=== PATIENT | female | born 1950 | race Caucasian/White ===

== ENCOUNTER 2017-03-03 11:16 | Emergency (ER) | payer OTHER ==
[~2017-03-03] VITALS: Ht 160 cm; Wt 68.0 kg
[2017-03-03 11:23] VITALS: BP 145/78; PULSE 79; RESP 16; TEMP 97.9; O2SAT 100
[2017-03-03] MEDS ORDERED: TRAM50TA PO (11:34)
[2017-03-03] MEDS ORDERED: muscle relaxer (11:34)
[2017-03-03] MEDS ORDERED: MULTTAB67 PO (11:34)
[2017-03-03] MEDS ORDERED: ONDANSETRON HCL 4 MG/2 ML VIAL IVP ONE (11:45)
[2017-03-03] MEDS ORDERED: FAMOTIDINE 20 MG/2 ML VIAL IV PUSH ONE (11:45)
[2017-03-03] MEDS ORDERED: SODIUM CHLOR 0.9% 1000 ML INJ 1,000 ML IV ONE (11:45)
[2017-03-03] MEDS ORDERED: SODIUM CHLOR 0.9% 1000 ML INJ 1,000 ML IV SCH (11:45)
[2017-03-03] MEDS ORDERED: SODIUM CHLORIDE 0.9% FLUSH 10 ML FLUSH IV FLUSH PRN (11:45)
[2017-03-03] MEDS ORDERED: MORPHINE SULFATE 4 MG/ML INJ IV PUSH ONE (11:45)
--- NOTE | 2017-03-03 11:52 | PD ---
HPI Chief Complaint: GI Complaint Time Seen by Provider: 11:38 Travel History International Travel<30 days: No Contact w/Intl Traveler<30days: No Traveled to known affect area: No History of Present Illness HPI Patient is a 67-year-old female with history of diverticulosis who presents to emergency room with complaints of lower abdominal pain with nausea, vomiting and diarrhea. Patient reports that she has had lower abdominal discomfort for the past week. Reports that since last night, she has been experiencing increased nausea, vomiting and diarrhea. Patient reports that symptoms feel similar to when she was diagnosed with acute diverticulitis in the past. Patient reports that she last had a colonoscopy 8 years ago which showed diverticulosis. Patient with no recent travels or trips, patient with no sick contacts. Patient denies any fevers or chills, reports that she has not been on any antibiotics recently. Patient with no complaints at this time PFSH Past Medical History Medical History: Denies Significant Hx Diminished Hearing: No Musculoskeletal: Yes (neck problems) Influenza Vaccination: No ?: Not Past Surgical History Gynecologic Surgery: Yes (endometrosis) Social History Alcohol Use: Yes (liquor daily) Tobacco Use: No Allergies-Medications (Allergen,Severity, Reaction): Coded Allergies: No Known Allergies (Unverified , 03/03/17) Reported Meds & Prescriptions Reported Meds & Active Scripts Active Flagyl (Metronidazole) 500 Mg Tab 500 Mg PO QID 10 Days Cipro (Ciprofloxacin HCl) 500 Mg Tab 500 Mg PO BID 10 Days Reported Multiple Vitamin 1 Tab 1 Tab PO DAILY [muscle relaxer] 0 Tramadol (Tramadol HCl) 50 Mg Tab 50 Mg PO Q4H PRN Review of Systems General / Constitutional: No: Fever Eyes: No: Visual changes HENT: No: Headaches Cardiovascular: No: Chest Pain or Discomfort Respiratory: No: Shortness of Breath Gastrointestinal: Positive: Nausea, Vomiting, Diarrhea, Abdominal Pain Genitourinary: No: Dysuria Musculoskeletal: No: Pain Skin: No Rash Neurologic: No: Weakness Psychiatric: No: Depression Endocrine: No: Polydipsia Hematologic/Lymphatic: No: Easy Bruising Physical Exam Narrative GENERAL: Mild distress SKIN: Focused skin assessment warm/dry. HEAD: Atraumatic. Normocephalic. EYES: Pupils equal and round. No scleral icterus. No injection or drainage. ENT: No nasal bleeding or discharge. Mucous membranes pink and moist. NECK: Trachea midline. No JVD. CARDIOVASCULAR: Regular rate and rhythm. No murmur appreciated. RESPIRATORY: No accessory muscle use. Clear to auscultation. Breath sounds equal bilaterally. GASTROINTESTINAL: Abdomen soft, increased tenderness to lower abdomen with no rebound or guarding on exam, nondistended. Hepatic and splenic margins not palpable. MUSCULOSKELETAL: No obvious deformities. No clubbing. No cyanosis. No edema. NEUROLOGICAL: Awake and alert. No obvious cranial nerve deficits. Motor grossly within normal limits. Normal speech. PSYCHIATRIC: Appropriate mood and affect; insight and judgment normal. Data Data Last Documented VS Vital Signs Date Time Temp Pulse Resp B/P (MAP) Pulse Ox O2 Delivery O2 Flow Rate FiO2 03/03/17 13:09 65 18 163/83 (109) 99 Room Air 03/03/17 11:23 97.9 Orders Orders Complete Blood Count With Diff (03/03/17 11:45) Comprehensive Metabolic Panel (03/03/17 11:45) Lipase (03/03/17 11:45) Prothrombin Time / Inr (Pt) (03/03/17 11:45) Act Partial Throm Time (Ptt) (03/03/17 11:45) Urinalysis - C+S If Indicated (03/03/17 11:45) Ct Abd/Pel W Iv Contrast(Rout) (03/03/17 11:45) Iv Access Insert/Monitor (03/03/17 11:45) NPO (03/03/17 11:45) Morphine Inj (Morphine Inj) (03/03/17 11:45) Ondansetron Inj (Zofran Inj) (03/03/17 11:45) Sodium Chlor 0.9% 1000 Ml Inj (Ns 1000 M (03/03/17 11:45) Sodium Chloride 0.9% Flush (Ns Flush) (03/03/17 11:45) Famotidine Inj (Pepcid Inj) (03/03/17 11:45) Sodium Chlor 0.9% 1000 Ml Inj (Ns 1000 M (03/03/17 11:45) Iohexol 350 Inj (Omnipaque 350 Inj) (03/03/17 12:54) Morphine Inj (Morphine Inj) (03/03/17 13:30) Ciprofloxacin 400 Mg Premix (Cipro 400 M (03/03/17 13:30) Metronidazole 500 Mg Inj (Flagyl 500 Mg (03/03/17 13:30) Ciprofloxacin (Cipro) (03/03/17 13:30) Metronidazole (Flagyl) (03/03/17 13:30) Labs Laboratory Tests Test 03/03/17 11:40 03/03/17 13:10 White Blood Count 9.0 TH/MM3 Red Blood Count 4.48 MIL/MM3 Hemoglobin 13.7 GM/DL Hematocrit 40.5 % Mean Corpuscular Volume 90.4 FL Mean Corpuscular Hemoglobin 30.5 PG Mean Corpuscular Hemoglobin Concent 33.7 % Red Cell Distribution Width 11.9 % Platelet Count 313 TH/MM3 Mean Platelet Volume 8.7 FL Neutrophils (%) (Auto) 69.1 % Lymphocytes (%) (Auto) 24.4 % Monocytes (%) (Auto) 4.9 % Eosinophils (%) (Auto) 0.3 % Basophils (%) (Auto) 1.3 % Neutrophils # (Auto) 6.3 TH/MM3 Lymphocytes # (Auto) 2.2 TH/MM3 Monocytes # (Auto) 0.4 TH/MM3 Eosinophils # (Auto) 0.0 TH/MM3 Basophils # (Auto) 0.1 TH/MM3 CBC Comment AUTO DIFF Differential Comment AUTO DIFF CONFIRMED Prothrombin Time 11.3 SEC Prothromb Time International Ratio 1.0 RATIO Activated Partial Thromboplast Time 27.0 SEC Blood Urea Nitrogen 11 MG/DL Creatinine 0.52 MG/DL Random Glucose 97 MG/DL Total Protein 7.2 GM/DL Albumin 3.5 GM/DL Calcium Level 9.4 MG/DL Alkaline Phosphatase 52 U/L Aspartate Amino Transf (AST/SGOT) 19 U/L Alanine Aminotransferase (ALT/SGPT) 31 U/L Total Bilirubin 0.4 MG/DL Sodium Level 137 MEQ/L Potassium Level 3.6 MEQ/L Chloride Level 104 MEQ/L Carbon Dioxide Level 25.0 MEQ/L Anion Gap 8 MEQ/L Estimat Glomerular Filtration Rate 118 ML/MIN Lipase 153 U/L MDM Medical Decision Making Medical Screen Exam Complete: Yes Emergency Medical Condition: Yes Medical Record Reviewed: Yes Interpretation(s) Vital Signs Date Time Temp Pulse Resp B/P (MAP) Pulse Ox O2 Delivery O2 Flow Rate FiO2 03/03/17 11:23 97.9 79 16 145/78 (100) 100 Differential Diagnosis Differential includes diverticulitis, gastritis, gastroenteritis, uti, electrolyte abnormality Narrative Course Patient is a 67 year old female who presents to ER with complaints of lower abdominal with nausea and vomiting and diarrhea. Patient with history of diverticulosis and diverticulitis. CBC, CMP, UA ordered as well as ct of abdomen and pelvis. IVF ordered as well as antiemetics and morphine for pain. Plan to hydrate and observe patient. Vital Signs Date Time Temp Pulse Resp B/P (MAP) Pulse Ox O2 Delivery O2 Flow Rate FiO2 03/03/17 13:09 65 18 163/83 (109) 99 Room Air 03/03/17 12:35 18 03/03/17 11:23 97.9 79 16 145/78 (100) 100 Laboratory Tests Test 03/03/17 11:40 White Blood Count 9.0 TH/MM3 (4.0-11.0) Red Blood Count 4.48 MIL/MM3 (4.00-5.30) Hemoglobin 13.7 GM/DL (11.6-15.3) Hematocrit 40.5 % (35.0-46.0) Mean Corpuscular Volume 90.4 FL (80.0-100.0) Mean Corpuscular Hemoglobin 30.5 PG (27.0-34.0) Mean Corpuscular Hemoglobin Concent 33.7 % (32.0-36.0) Red Cell Distribution Width 11.9 % (11.6-17.2) Platelet Count 313 TH/MM3 (150-450) Mean Platelet Volume 8.7 FL (7.0-11.0) Neutrophils (%) (Auto) 69.1 % (16.0-70.0) Lymphocytes (%) (Auto) 24.4 % (9.0-44.0) Monocytes (%) (Auto) 4.9 % (0.0-8.0) Eosinophils (%) (Auto) 0.3 % (0.0-4.0) Basophils (%) (Auto) 1.3 % (0.0-2.0) Neutrophils # (Auto) 6.3 TH/MM3 (1.8-7.7) Lymphocytes # (Auto) 2.2 TH/MM3 (1.0-4.8) Monocytes # (Auto) 0.4 TH/MM3 (0-0.9) Eosinophils # (Auto) 0.0 TH/MM3 (0-0.4) Basophils # (Auto) 0.1 TH/MM3 (0-0.2) CBC Comment AUTO DIFF Differential Comment AUTO DIFF CONFIRMED Prothrombin Time 11.3 SEC (9.8-11.6) Prothromb Time International Ratio 1.0 RATIO Activated Partial Thromboplast Time 27.0 SEC (24.3-30.1) Blood Urea Nitrogen 11 MG/DL (7-18) Creatinine 0.52 MG/DL (0.50-1.00) Random Glucose 97 MG/DL (74-106) Total Protein 7.2 GM/DL (6.4-8.2) Albumin 3.5 GM/DL (3.4-5.0) Calcium Level 9.4 MG/DL (8.5-10.1) Alkaline Phosphatase 52 U/L (45-117) Aspartate Amino Transf (AST/SGOT) 19 U/L (15-37) Alanine Aminotransferase (ALT/SGPT) 31 U/L (10-53) Total Bilirubin 0.4 MG/DL (0.2-1.0) Sodium Level 137 MEQ/L (136-145) Potassium Level 3.6 MEQ/L (3.5-5.1) Chloride Level 104 MEQ/L (98-107) Carbon Dioxide Level 25.0 MEQ/L (21.0-32.0) Anion Gap 8 MEQ/L (5-15) Estimat Glomerular Filtration Rate 118 ML/MIN (>89) Lipase 153 U/L (73-393) cbc: wnl bmp: wnl lfts: wnl coags: wnl Ct of abdomen and pelvis: Bowel wall thickening involving most of the descending colon extending into the sigmoid. There is also pericolonic inflammatory changes beginning the proximal descending and extending into the junction of the descending and sigmoid portions of the colon. There are scattered diverticula in the colon most severe in the descending and sigmoid colon. There is a fibroid as well as bilateral pars fractures Patient with uncomplicated diverticulitis, plan to treat with Cipro and Flagyl, will have him return to ER as needed. 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 Signs and symptoms of when to return to the emergency room was reviewed with patient in detail. A copy of pt's ct report was given to her at discharge - incidental findings were reviewed. Patient appreciative of care Diagnosis Primary Impression: Diverticulitis Qualified Codes: K57.32 - Diverticulitis of large intestine without perforation or abscess without bleeding Patient Instructions: General Instructions, Narcotic given in the ED Additional Instructions: Please provide patient with a copy of her studies at discharge Please take all medications as prescribed Follow-up with your primary care doctor in 2-3 days Please follow-up with the stripping and booking machine operator Drink plenty of fluids Med/Other Pt SpecificInfo: Prescription(s) given Scripts Metronidazole (Flagyl) 500 Mg Tab 500 MG PO QID for Infection for 10 Days, TAB 0 Refills Prov: Vivian Camejo DO 03/03/17 Ciprofloxacin (Cipro) 500 Mg Tab 500 MG PO BID for Infection for 10 Days, #20 TAB 0 Refills Prov: Vivian Camejo DO 03/03/17 Disposition: 01 DISCHARGE HOME Condition: Stable Vivian Camejo DO Mar 03, 2017 11:52
[2017-03-03 12:07] LABS: AUTOMATED NEUTROPHIL # 6.3 TH/MM3 (1.8-7.7); BASOPHIL # 0.1 TH/MM3 (0-0.2); BASOPHIL % 1.3 % (0.0-2.0); EOSINOPHIL % 0.3 % (0.0-4.0); HEMATOCRIT 40.5 % (35.0-46.0); LYMPH % 24.4 % (9.0-44.0); LYMPHOCYTE # 2.2 TH/MM3 (1.0-4.8); MEAN CELL VOLUME 90.4 FL (80.0-100.0); MEAN CORPUSCULAR HEMOGLOBIN 30.5 PG (27.0-34.0); MEAN CORPUSCULAR HGB CONC 33.7 % (32.0-36.0); MONO % 4.9 % (0.0-8.0); NEUT % 69.1 % (16.0-70.0); PLATELET COUNT 313 TH/MM3 (150-450); RED BLOOD COUNT 4.48 MIL/MM3 (4.00-5.30); RED CELL DISTRIBUTION WIDTH 11.9 % (11.6-17.2)
[2017-03-03 12:10] LABS: HEMO FLAGS AUTO DIFF
[2017-03-03 12:25] LABS: CHLORIDE 104 MEQ/L (98-107); POTASSIUM 3.6 MEQ/L (3.5-5.1); SODIUM (NA) 137 MEQ/L (136-145)
[2017-03-03 12:29] LABS: ANION GAP 8 MEQ/L (5-15)
[2017-03-03 12:30] LABS: BLOOD UREA NITROGEN 11 MG/DL (7-18); PROTHROMBIN TIME - PATIENT 11.3 SEC (9.8-11.6)
[2017-03-03 12:32] LABS: ALT (GPT) 31 U/L (10-53); AST (GOT) 19 U/L (15-37)
[2017-03-03 12:33] LABS: GLOMERULAR FILTRATION RATE 118 ML/MIN (>89)
[2017-03-03 12:34] LABS: TOTAL BILIRUBIN ADULT 0.4 MG/DL (0.2-1.0)
[2017-03-03 12:35] LABS: ALKALINE PHOSPHATASE 52 U/L (45-117)
[2017-03-03 12:36] LABS: SCAN/DIFF AUTO DIFF CONFIRMED
[2017-03-03] MEDS ORDERED: IOHEXOL 350 MG/ML 10 ML VIAL (for RAD DIAG) IVCONTRAST ONE (12:54)
[2017-03-03 13:09] VITALS: BP 163/83; PULSE 65; RESP 18; O2SAT 99
--- NOTE | 2017-03-03 13:12 | RADRPT ---
EXAM DATE/TIME: 03/03/2017 12:45 [facility] COMPARISON: No previous studies available for comparison. INDICATIONS : Umbilical pain for one week. IV CONTRAST: 95 cc Omnipaque 350 (iohexol) IV ORAL CONTRAST: No oral contrast ingested. RADIATION DOSE: 18.44 CTDIvol (mGy) MEDICAL HISTORY : Diverticulitis. SURGICAL HISTORY : None. ENCOUNTER: Initial ACUITY: 1 week PAIN SCALE: 4/10 LOCATION: abdomen TECHNIQUE: Volumetric scanning of the abdomen and pelvis was performed. Using automated exposure control and ad justment of the mA and/or kV according to patient size, radiation dose was kept as low as reasonably achievable to obtain optimal diagnostic quality images. DICOM format image data is available electro nically for review and comparison. FINDINGS: LOWER LUNGS: The visualized lower lungs are clear. LIVER: Homogeneous density without lesion. There is no dilation of the biliary tree. No calcified gallston es. SPLEEN: Normal size without lesion. PANCREAS: Within normal limits. KIDNEYS: Normal in size and shape. There is no mass, stone or hydronephrosis. ADRENAL GLANDS: Within normal limits. VASCULAR: There is no aortic aneurysm. BOWEL/MESENTERY: Bowel wall thickening involving most of the descending colon extending into the sigmoid. There is als o pericolonic inflammatory changes beginning in the proximal descending and extending into the juncti on of the descending and sigmoid portions of colon. Scattered diverticula in the colon, most severe i n the descending and sigmoid. ABDOMINAL WALL: Within normal limits. RETROPERITONEUM: There is no lymphadenopathy. BLADDER: No wall thickening or mass. REPRODUCTIVE: Nodular densities in the uterus, with a pedunculated 2.7 cm lesion left posterolateral characteristic of fibroids. Small amount of free fluid in the deep right pelvis. INGUINAL: There is no lymphadenopathy or hernia. MUSCULOSKELETAL: Partial sacralization of the left side of L5. There appear to be bilateral pars fractures at this lev el as well. CONCLUSION: 1. Patient's symptoms appear to be due to a colitis involving the descending and sigmoid portions of the colon. With the significant regional diverticular disease, findings are most characteristic of a uncomplicated diverticulitis. 2. Small amount of free fluid in the deep right pelvis probably represents some weeping from the infl [place] bowel. 3. Uterine fibroids. 4. Partial sacralization of the left side of L5 with probable bilateral pars fractures at the same le seth. Reymundo Aragon MD on March 03, 2017 at 13:05 Board Certified Radiologist. This report was verified electronically.
[2017-03-03] MEDS ORDERED: METR-1 PO (13:21)
[2017-03-03] MEDS ORDERED: CIPR-9 PO (13:21)
[2017-03-03] MEDS ORDERED: metroNIDAZOLE 500 MG TAB PO ONE (13:30)
[2017-03-03] MEDS ORDERED: MORPHINE SULFATE 8 MG/ML INJ IV PUSH ONE (13:30)
[2017-03-03] MEDS ORDERED: CIPROFLOXACIN 400 MG PREMIX 200 ML IV ONE (13:30)
[2017-03-03] MEDS ORDERED: CIPROFLOXACIN 500 MG TAB PO ONE (13:30)
[2017-03-03] MEDS ORDERED: metroNIDAZOLE 500 MG INJ 100 ML IV ONE (13:30)
[2017-03-03 13:32] LABS: BLOOD, URINE TRACE (NEG); GLUCOSE,URINE NEG (NEG); KETONE, URINE TRACE mg/dL (NEG); NITRITE,URINE NEG (NEG)
[2017-03-03 13:41] LABS: CULTURE IF INDICATED CULT NOT INDICATED; METHOD OF COLLECTION CLEAN CATCH; RBC, URINE 0-3 /hpf (0-3); SQUAMOUS EPITHELIAL CELL URINE 0-5 /hpf (0-5); URINE COLOR STRAW (YELLW/STRAW)
[2017-03-03 13:42] LABS: COMMENT (UR) CULT NOT INDICATED
[2017-03-03 13:51] VITALS: RESP 18
== END 2017-03-03 14:08 | disposition home or self-care (01) ==
LOC: PHED 11:16
DX: K57.32 Diverticulitis of large intestine without perforation or abscess without bleeding (principal)
CPT/HCPCS: 74177; 80053; 81001; 83690; 85025; 85610; 85730; 96361; 96374; 96375; 96376; 99285; J2270; J2405; J7030; Q9967

== ENCOUNTER 2018-01-18 10:55 | Observation (INO) ==
[2018-01-18 10:59] VITALS: TEMP 98.3
[2018-01-18] MEDS ORDERED: Aspirin 325 MG Tablet PO ONE (11:15)
--- NOTE | 2018-01-18 11:20 | ED ---
HPI General Chief Complaint: Chest Pain Stated Complaint: CP x 3 wks Time Seen by Provider: 01/18/18 11:15 Source: patient Mode of arrival: ambulatory Limitations: no limitations History of Present Illness HPI narrative: 68-year-old female patient presents to the ER today because she has had 3 weeks of intermittent dull 5 out of 10 chest pains without obvious alleviating or exacerbating factors. She has not noticed any nausea, vomiting, coughing, fevers, or other symptoms. She has never had chest pains like this before. Complete Quality Measures for STEMI Alert Patients Related Data Home Medications Medication Instructions Recorded Confirmed alprazolam 5 mg PO PRN PRN 01/18/18 01/18/18 ibuprofen 800 mg PO QDRHS 01/18/18 01/18/18 phentermine 01/18/18 trazodone 5 mg PO HS 01/18/18 01/18/18 Allergies Allergy/AdvReac Type Severity Reaction Status Date / Time No Known Allergies Allergy Unverified 01/18/18 11:55 Review of Systems ROS: all other systems reviewed are negative [facility] Medical History Medical History Anxiety (Acute) Chronic neck pain (Acute) Depression (Acute) Diverticulitis (Acute) Fibromyalgia (Acute) Vertigo (Acute) Social History Social History Substance History: No History of Abuse Second Hand Smoke Exposure: No Smoking Status: Never smoker How Often Do You Have a Drink Containing Alcohol: 4 or more times a week Recent Travel in [facility] within the Last 8 Weeks: No Recent Out of Country Travel within the Last 8 Weeks: No Immunization History Tetanus Immunization: >5 Years Hx Influenza Vaccine This Season: No Exam Narrative Exam Narrative: GENERAL: Well-developed elderly female patient currently in mild distress. Awake and oriented 3. SKIN: Focused skin assessment warm/dry. HEAD: Atraumatic. Normocephalic. EYES: Pupils equal and round. No scleral icterus. No injection or drainage. ENT: No nasal bleeding or discharge. Mucous membranes pink and moist. NECK: Trachea midline. No JVD. Supple. CARDIOVASCULAR: Regular rate and rhythm. No murmur appreciated. RESPIRATORY: No accessory muscle use. Clear to auscultation. Breath sounds equal bilaterally. GASTROINTESTINAL: Abdomen soft, non-tender, nondistended. Hepatic and splenic margins not palpable. MUSCULOSKELETAL: No obvious deformities. No clubbing. No cyanosis. No edema. NEUROLOGICAL: Awake and alert. No obvious cranial nerve deficits. Motor grossly within normal limits. Normal speech. PSYCHIATRIC: Appropriate mood and affect; insight and judgment normal. Course Initial Documented Vital Signs Temperature 98.3 F 01/18/18 10:56 Pulse Rate 102 H 01/18/18 10:56 Blood Pressure 133/83 01/18/18 10:56 Pulse Oximetry 98 01/18/18 10:56 Last Documented Vital Signs Temperature 98.3 F 01/18/18 10:56 Pulse Rate 82 01/18/18 11:15 Respiratory Rate 16 01/18/18 11:15 Blood Pressure 173/95 H 01/18/18 11:15 Pulse Oximetry 97 01/18/18 11:32 Medical Decision Making MDM Narrative Medical decision making narrative: EKG, workup was fairly unremarkable. Cardiac enzymes negative. Patient was given aspirin in the ER. At this point, considering her symptoms and risk factors, plan would be to admit her to chest pain center for further evaluation. Case was discussed with Dr. Braun for admission. Differential Diagnosis Differential Diagnosis: ACS versus anxiety versus dysrhythmias versus pneumonia Lab Data Result diagrams: 01/18/18 11:25 01/18/18 11:25 Lab Results 01/18/18 01/18/18 01/18/18 Range/Units 11:25 11:25 11:25 CBC w Diff Auto diff final WBC 4.2 (4.0-11.0) th/mm3 RBC 4.42 (4.00-5.30) mil/mm3 Hgb 14.0 (11.6-15.3) gm/dL Hct 41.4 (35.0-46.0) % MCV 93.7 (80.0-100.0) fL MCH 31.6 (27.0-34.0) pg MCHC 33.8 (32.0-36.0) % RDW 12.4 (11.6-17.2) % Plt Count 287 (150-450) th/mm3 MPV 8.3 (7.0-11.0) fL WBC Differential . Differential Comment . PT 10.7 (9.8-11.6) sec INR 1.1 Ratio APTT 25.8 (24.3-30.1) sec Sodium (136-145) meq/L Potassium (3.5-5.1) meq/L Chloride (98-107) meq/L Carbon Dioxide (21.0-32.0) meq/L Anion Gap (5-15) meq/L BUN (7-18) mg/dL Creatinine (0.50-1.00) mg/dL Estimated GFR (>89) mL/min Random Glucose (74-106) mg/dL Calcium (8.5-10.1) mg/dL Total Bilirubin (0.2-1.0) mg/dL AST (15-37) U/L ALT (10-53) U/L Alkaline Phosphatase (45-117) U/L Troponin I Less than 0.02 L (0.02-0.05) ng/mL Total Protein (6.4-8.2) g/dL Albumin (3.4-5.0) g/dL 01/18/18 Range/Units 11:25 CBC w Diff WBC (4.0-11.0) th/mm3 RBC (4.00-5.30) mil/mm3 Hgb (11.6-15.3) gm/dL Hct (35.0-46.0) % MCV (80.0-100.0) fL MCH (27.0-34.0) pg MCHC (32.0-36.0) % RDW (11.6-17.2) % Plt Count (150-450) th/mm3 MPV (7.0-11.0) fL WBC Differential Differential Comment PT (9.8-11.6) sec INR Ratio APTT (24.3-30.1) sec Sodium 139 (136-145) meq/L Potassium 3.9 (3.5-5.1) meq/L Chloride 104 (98-107) meq/L Carbon Dioxide 26.5 (21.0-32.0) meq/L Anion Gap 9 (5-15) meq/L BUN 13 (7-18) mg/dL Creatinine 0.55 (0.50-1.00) mg/dL Estimated GFR Greater than 89 (>89) mL/min Random Glucose 109 H (74-106) mg/dL Calcium 9.3 (8.5-10.1) mg/dL Total Bilirubin 0.4 (0.2-1.0) mg/dL AST 14 L (15-37) U/L ALT 25 (10-53) U/L Alkaline Phosphatase 51 (45-117) U/L Troponin I (0.02-0.05) ng/mL Total Protein 8.0 (6.4-8.2) g/dL Albumin 4.1 (3.4-5.0) g/dL Imaging Data Radiologist's impression: Chest X-Ray 01/18/18 11:15 CONCLUSION: No acute cardiopulmonary disease Discharge Plan Discharge Details Anticipated Discharge Date: 01/18/18 Physicians Team ED Provider: Foster De Primary Care Provider: Yamila Tucker Rxs /Orders / Referrals /Forms Prescriptions: No Action alprazolam 5 mg PO PRN PRN (Reason: Anxiety) RF: 0 ibuprofen 800 mg PO QDRHS RF: 0 phentermine RF: 0 trazodone 5 mg PO HS RF: 0 Status ED Status: With Doctor
[2018-01-18 11:32] LABS: Hematocrit 41.4 % (35.0-46.0); Mean Corpuscular HGB Conc 33.8 % (32.0-36.0); Mean Corpuscular Hemoglobin 31.6 pg (27.0-34.0); Mean Corpuscular Volume 93.7 fL (80.0-100.0); Mean Platelet Volume 8.3 fL (7.0-11.0); Platelet Count 287 th/mm3 (150-450); Red Blood Count 4.42 mil/mm3 (4.00-5.30); Red Cell Distribution Width 12.4 % (11.6-17.2); White Blood Count 4.2 th/mm3 (4.0-11.0)
[2018-01-18 11:38] VITALS: RESP 16
[2018-01-18 11:46] LABS: Activated Partial Thrombo Time 25.8 sec (24.3-30.1); INR 1.1 Ratio; Prothrombin Time 10.7 sec (9.8-11.6)
--- NOTE | 2018-01-18 11:49 | XR ---
EXAM DATE: 01/18/2018 11:34 AM EDT AGE/SEX: 68 years / Female INDICATIONS: Off and on chest pain for 3 weeks CLINICAL DATA: This is the patient's initial encounter. Patient reports that signs and symptoms have been present for 3 weeks and indicates a pain score of 10/10. MEDICAL/SURGICAL HISTORY: None. None. COMPARISON: No prior exams available for comparison. FINDINGS: A single AP view of the chest demonstrates the lungs to be symmetrically aerated without evidence of mass, infiltrate or effusion. The cardiomediastinal contours are unremarkable. Osseous structures a re intact. CONCLUSION: No acute cardiopulmonary disease Electronically signed by: Christopher Hollis MD 01/18/2018 11:48 AM EDT
[2018-01-18 11:51] LABS: Chloride 104 meq/L (98-107); Potassium 3.9 meq/L (3.5-5.1); Sodium 139 meq/L (136-145)
[2018-01-18 11:55] LABS: Albumin 4.1 g/dL (3.4-5.0); Anion Gap 9 meq/L (5-15); Blood Urea Nitrogen 13 mg/dL (7-18); Calcium 9.3 mg/dL (8.5-10.1); Carbon Dioxide 26.5 meq/L (21.0-32.0); Glucose,Random 109 mg/dL (74-106)
[2018-01-18 11:58] LABS: Alanine Aminotransferase 25 U/L (10-53); Aspartate Aminotransferase 14 U/L (15-37); Glomerular Filtration Rate Greater Than 89 mL/min (>89)
[2018-01-18 12:01] LABS: Alkaline Phosphatase 51 U/L (45-117)
[2018-01-18] MEDS ORDERED: Acetaminophen 500 MG Tablet PO PRN (12:23)
[2018-01-18] MEDS ORDERED: Morphine Inj 4 MG/ML Vial IV.PUSH PRN (12:23)
[2018-01-18 13:36] VITALS: BP 136/75
--- NOTE | 2018-01-18 14:09 | P.HP ---
History of Present Illness Primary Care Physician: Yamila Tucker DO Chief Complaint: Chest pain History of Present Illness: 68-year-old female with no history of any cardiovascular disease who presented to the emergency department because of chest pain. Patient states that she has been experiencing chest discomfort for over 3 weeks now where it has been intermittent located in the left side of her chest without any radiation to the neck, back, shoulder, arm. Denied any nausea, vomiting, shortness of breath, dyspnea, diaphoresis. Patient states that she got another episode last night at roughly 9 PM that lasted for approximately 3 hours that was more severe than the previous episodes. She was thinking about calling 911 at that time. However the pain went away so she went to bed. She states that she has not notified her primary medical doctor of her recurrent chest discomfort over the last 3 weeks. She has never had a cardiac workup. Because the pain was so severe last night she decided to come to the emergency department this morning. Patient had workup done emergency department. Her workup was unremarkable. ER physician recommended patient be observed in the chest pain center. Patient is very active, she does exercise on a daily basis with walking, swimming. She denies any cardiac symptoms during exertion. - Diagnosis (1) Chest pain Review of Systems All other systems reviewed negative except as stated in HPI Cardiovascular: Reports chest pain PMFSH - History History Provided By: Patient - Medical History Medical History: Medical History (Last Reviewed 01/18/18 @ 14:06 by DAVID Evans) Anxiety Chronic neck pain Depression Diverticulitis Fibromyalgia Vertigo - Surgical History Surgical History: Surgical History (Last Updated 01/18/18 @ 13:42 by DAVID Evans) History of exploratory laparotomy - Family History Family History: Family History (Last Updated 01/18/18 @ 13:43 by DAVID Evans) Father No problems noted. Brother History of heart disease History of coronary artery disease Mother History of heart disease - Tobacco History Second Hand Smoke Exposure: No Smoking Status: Never smoker - Alcohol History How Often Do You Have a Drink Containing Alcohol: 4 or more times a week - Substance Use History Substance History: No History of Abuse - Travel History Recent Travel in the [place] Within the Last 8 Weeks: No Recent Travel Out of the Country Within the Last 8 Weeks: No - Immunization History Tetanus Immunization: >5 Years Hx Influenza Vaccine This Season: No Medications and Allergies Active Medications: Active Medications Acetaminophen (Tylenol) 500 mg PO Q4H PRN PRN Reason: HEADACHE Hydrocodone Bitart/Acetaminophen ([place] 7.5/325) 1 tab PO Q4H PRN PRN Reason: PAIN SCALE 1 TO 7 Aspirin (Aspirin) 325 mg PO DAILY FELICIA Morphine Sulfate (Morphine Inj) 2 mg IV.PUSH Q4H PRN PRN Reason: PAIN SCALE 8 TO 10 Nitroglycerin (Nitrostat Sl) 0.4 mg SL Q5M PRN PRN Reason: CHEST PAIN Ondansetron HCl (Zofran Inj) 4 mg IV.PUSH Q6H PRN PRN Reason: NAUSEA Sodium Chloride (Ns Flush) 2 ml IV.FLUSH BID FELICIA Sodium Chloride (Ns Flush) 2 ml IV.FLUSH PRN PRN PRN Reason: FLUSH AFTER USING IV ACCESS Temazepam (Restoril) 15 mg PO HS PRN PRN Reason: INSOMNIA Allergies Allergy/AdvReac Type Severity Reaction Status Date / Time No Known Allergies Allergy Unverified 01/18/18 11:55 Home Medications Medication Instructions Recorded Confirmed Type alprazolam 5 mg PO PRN PRN 01/18/18 01/18/18 History ibuprofen 800 mg PO QDRHS 01/18/18 01/18/18 History phentermine 01/18/18 History trazodone 5 mg PO HS 01/18/18 01/18/18 History Exam Vital signs: Vital Signs 01/18/18 10:56 01/18/18 11:00 01/18/18 11:15 Temperature 98.3 F Pulse Rate 102 H 76 82 Respiratory Rate 16 Blood Pressure 133/83 173/95 H Pulse Oximetry 98 99 01/18/18 11:32 01/18/18 12:00 01/18/18 13:00 Temperature Pulse Rate 76 71 Respiratory Rate 16 16 Blood Pressure 124/76 136/75 Pulse Oximetry 97 97 100 Intake & Output 01/17/18 01/18/18 01/18/18 18:59 06:59 18:59 Weight 68 kg Narrative: GENERAL: Well-developed, well-nourished, in no acute distress. alert and orientated HEENT: Head is normocephalic without any lesions or masses noted. Facial features are symmetric. Eyes: Pupils equal round reactive to light. Extraocular muscles are intact. Conjunctivae were clear. Oropharyngeal: Pharynx without any erythema edema. Tongue is midline without deviation. Buccal mucosa is moist without any masses or lesions NECK: Supple without any masses. Trachea midline no deviation. No JVD, no bruits are appreciated CARDIAC: Regular rhythm, regular rate. S1/S2 are heard. No murmurs gallops or rubs. Patient does have palpable chest wall tenderness, mainly over the manubrium LUNGS: Clear to auscultation bilaterally. No wheeze, rhonchi or rales. No use of accessory muscles on inspiration or expiration. ABDOMEN: Soft, nontender. Nondistended. Bowel sounds heard in all 4 quadrants. No organomegaly or masses. Negative rebound, negative guarding EXTREMITIES: No edema, pulses are equal bilaterally. No cyanosis or clubbing NEUROLOGY: Mood and affect appear appropriate. Cranial nerves II through XII grossly intact. Muscle strength 5/5 in upper and lower extremities bilaterally. Deep tendon reflexes are 2+ in upper and lower extremities bilaterally. Results - Labs CBC & Chem 7: 01/18/18 11:25 01/18/18 11:25 Labs: Laboratory Results - last 24 hr 01/18/18 01/18/18 01/18/18 11:25 11:25 11:25 CBC w Diff Auto diff final WBC 4.2 RBC 4.42 Hgb 14.0 Hct 41.4 MCV 93.7 MCH 31.6 MCHC 33.8 RDW 12.4 Plt Count 287 MPV 8.3 WBC Differential . Differential Comment . PT 10.7 INR 1.1 APTT 25.8 Sodium Potassium Chloride Carbon Dioxide Anion Gap BUN Creatinine Estimated GFR Random Glucose Calcium Total Bilirubin AST ALT Alkaline Phosphatase Troponin I Less than 0.02 L Total Protein Albumin 01/18/18 11:25 CBC w Diff WBC RBC Hgb Hct MCV MCH MCHC RDW Plt Count MPV WBC Differential Differential Comment PT INR APTT Sodium 139 Potassium 3.9 Chloride 104 Carbon Dioxide 26.5 Anion Gap 9 BUN 13 Creatinine 0.55 Estimated GFR Greater than 89 Random Glucose 109 H Calcium 9.3 Total Bilirubin 0.4 AST 14 L ALT 25 Alkaline Phosphatase 51 Troponin I Total Protein 8.0 Albumin 4.1 - Imaging Impressions Chest X-Ray 01/18/18 11:15 CONCLUSION: No acute cardiopulmonary disease Caprini VTE Risk Assessment Caprini VTE Risk Assessment: Moderate/High Risk (score >= 2) Caprini Risk Assessment Model: Point Value = 1 Point Value = 2 Point Value = 3 Point Value = 5 Age 41-60 Minor surgery BMI > 25 kg/m2 Swollen legs Varicose veins or History of unexplained or recurrent spontaneous Oral contraceptives or hormone replacement Sepsis (< 1 month) Serious lung disease, including pneumonia (< 1 month) Abnormal pulmonary function Acute myocardial infarction Congestive heart failure (< 1 month) History of inflammatory bowel disease Medical patient at bed rest Age 61-74 Arthroscopic surgery Major open surgery (> 45 min) Laparoscopic surgery (> 45 min) Malignancy Confined to bed (> 72 hours) Immobilizing plaster cast Central venous access Age >= 75 History of VTE Family history of VTE Factor V Leiden Prothrombin [id number] Lupus anticoagulant Anticardiolipin antibodies Elevated serum homocysteine Heparin-induced thrombocytopenia Other congenital or acquired thrombophilia Stroke (< 1 month) Elective arthroplasty Hip, pelvis, or leg fracture Acute spinal cord injury (< 1 month) Prophylaxis Regimen: Total Risk Factor Score Risk Level Prophylaxis Regimen 0-1 Low Early ambulation 2 Moderate Order ONE of the following: *Sequential Compression Device (SCD) *Heparin 5000 units SQ BID 3-4 Higher Order ONE of the following medications: *Heparin 5000 units SQ TID *Enoxaparin/Lovenox 40 mg SQ daily (WT < 150 kg, CrCl > 30 mL/min) *Enoxaparin/Lovenox 30 mg SQ daily (WT < 150 kg, CrCl > 10-29 mL/min) *Enoxaparin/Lovenox 30 mg SQ BID (WT < 150 kg, CrCl > 30 mL/min) AND/OR *Sequential Compression Device (SCD) 5 or more Highest Order ONE of the following medications: *Heparin 5000 units SQ TID (Preferred with Epidurals) *Enoxaparin/Lovenox 40 mg SQ daily (WT < 150 kg, CrCl > 30 mL/min) *Enoxaparin/Lovenox 30 mg SQ daily (WT < 150 kg, CrCl > 10-29 mL/min) *Enoxaparin/Lovenox 30 mg SQ BID (WT < 150 kg, CrCl > 30 mL/min) AND *Sequential Compression Device (SCD) Assessment and Plan - Assessment (1) Chest pain Code(s): R07.9 - Chest pain, unspecified Status: Acute - Plan Chest pain, atypical -Patient risk factors for coronary disease would be age, family history of heart disease -Patient has been ruled out for acute coronary event with serial cardiac enzymes are negative -Serial EKGs were performed and reviewed by myself which indicated sinus rhythm without any acute changes -Exercise stress test was performed which did not indicate any ischemia -Continue aspirin, nitroglycerin as needed for chest pain Anxiety, depression, fibromyalgia -Continue home medications DVT prevention -Sequential compression devices Discussed Condition With: Patient, at bedside, nursing staff Discharge Planning: Discharge home in stable condition Activity: Ad lucretia. Diet: Regular diet Medication per medication reconciliation Follow-up with primary medical doctor in 1 week
[2018-01-18 15:41] VITALS: PULSE 63
[2018-01-18 15:43] LABS: Creatine Kinase 86 U/L (26-192)
[2018-01-18 16:24] VITALS: O2SAT 99
[2018-01-18] MEDS ORDERED: Temazepam 15 MG Capsule PO PRN (21:00)
--- NOTE | 2018-01-19 08:34 | ECG ---
Date Performed: 01/18/2018 Time Performed: 15:08:59 PTAGE: 68 years EKG: Sinus rhythm POSSIBLE LEFT ATRIAL ENLARGEMENT BORDERLINE ECG PREVIOUS TRACING : 02/25/2005 11.09 DOCTOR: Matthias Dougherty Interpretating Date/Time 01/19/2018 08:28:44
[2018-01-19] MEDS ORDERED: Aspirin 325 MG Tablet PO SCH (09:00)
--- NOTE | 2018-01-19 13:18 | TR ---
Date Performed: 01/18/2018 Time Performed: 16:29:59 DOCTOR: Michael Ayala DRUG LIST: CLINICAL HISTORY: REASON FOR TEST: REASON FOR ENDING: Completed Protocol OBSERVATION: Chest Pain: None CONCLUSION: Patient tolerated KALYAN protocol with Total Exercise Time=6:01 Max Predicted SY=237 % Target HR Bhwjukzs=753.0% Maximum MG=488/80, Testing stopped secondary to goals acheived, During pe ak exercise patient had quick upsloping ST segement, no significant ST depressions, HR and BP appropr iate response to exercise, Recovery period patient HR and BP returned to baseline COMMENTS: Conclusion: Normal treadmill exercise. No evidence of ischemia. Results of nuclear sca n pending
== END 2018-01-18 17:38 | disposition home or self-care (01) ==
LOC: PHEDA 10:55 → PHED 10:55 → PH3 10:55
PROVIDERS: ADMIT Hospitalist; ATTEND Hospitalist
DX: G89.29 Other chronic pain; M79.7 Fibromyalgia; K57.92 Diverticulitis of intestine, part unspecified, without perforation or abscess without bleeding; M54.2 Cervicalgia; F41.9 Anxiety disorder, unspecified; R07.9 Chest pain, unspecified; Z82.49 Family history of ischemic heart disease and other diseases of the circulatory system; F32.9 Major depressive disorder, single episode, unspecified; R42 Dizziness and giddiness